=== PATIENT | female | born 1980 | race African-American/Black ===

== ENCOUNTER 2017-06-04 16:29 | Inpatient (IN) ==
[2017-06-04 18:00] LABS: Basophils % 0.5 % (0.0-0.8); Eosinophils # 0.1 10*3/uL (0.0-0.87); Eosinophils % 1.4 % (0.00-10.9); Hematocrit 29.6 VOL% (35.7-47.0); Hemoglobin 9.4 GM/DL (12.0-16.0); Immature Granulocytes % 0.5 %; Immature Granulocytes Absolute 0.02 #; Lymphocytes # 2.3 10*3/uL (1.4-4.0); Lymphocytes % 54.9 % (21.3-54.2); Mean Corpuscular HGB Conc 31.8 GM/DL (32-36); Mean Corpuscular Hemoglobin 25 PG (27-34); Mean Corpuscular Volume 78.5 FL (87-102); Mean Platelet Volume 9.6 FL (9.6-12.0); Monocytes # 0.3 10*3/uL (0.11-0.8); Monocytes % 6.7 % (1.7-12.7); Neutrophils # 1.5 10*3/uL (1.4-7.4); Platelet Count 359 T/CUMM (130-400); Red Blood Count 3.77 MC/CUMM (3.8-5.5); Red Cell Distribution Width 14.3 % (9.3-17.3); White Blood Count 4.2 T/CUMM (4-12)
[2017-06-04 18:14] LABS: Apearance,Urine Slightly Hazy (Clear); Bilirubin,Urine Negative (Negative); Blood, Urine Moderate mg/dL (Negative); Glucose,Urine (UA) Negative (Negative); Hyaline Casts,Urine 6 /LPF (0-3); Ketones,Urine Negative (Negative); Mucus,Urine Occasional /LPF (Occasional); Nitrite,Urine Negative (Negative); Protein,Urine 100 MG/DL; RBC,Urine 67 /HPF (0-4); Squamous Epithelial Cell,Urine Occasional /HPF (0-10); Urine Color Yellow (Yellow); Urine Urobilinogen < 2.0 EU/DL (0.2-1.0); WBC,Urine 7 /HPF (0-6)
[2017-06-04 18:30] LABS: Band Neutrophils 2 % (0-10); Lymphocytes 47 % (20-55); Microcytosis 1+; Platelet Estimate Normal; Segmented Neutrophils 45 % (50-85); Total Cells Counted 100
[2017-06-04] MEDS ORDERED: diphenhydrAMINE CAP 25 MG CAPSULE PO PRN (18:33)
[2017-06-04] MEDS ORDERED: ONDANSETRON 4 MG/2 ML VIAL IV PRN (18:33)
[2017-06-04] MEDS ORDERED: ACETAMINOPHEN 325 MG TABLET PO PRN (18:33)
[2017-06-04] MEDS ORDERED: MORPHINE 4 MG/1 ML VIAL IV PRN (18:33)
[2017-06-04] MEDS ORDERED: DOCUSATE SODIUM 100 MG CAPSULE PO PRN (18:33)
[2017-06-04 19:42] LABS: Potassium 5.1 MMOL/L (3.5-5.1); Sodium 137 MMOL/L (136-145)
[2017-06-04 19:46] LABS: Blood Urea Nitrogen 51 MG/DL (7-18); Glucose 88 MG/DL (74-106); Osmolality,Calculated 285.8 MOS/KG (273-304)
[2017-06-04 19:49] LABS: Alanine Aminotransferase 13 U/L (13-56); Aspartate Amino Transferase 30 U/L (0-37)
[2017-06-04 19:50] LABS: Bilirubin,Total < 0.39 MG/DL (0.2-1.0)
[2017-06-04 19:51] LABS: Total Protein 8.9 G/DL (6.4-8.3)
[2017-06-04 19:52] LABS: Alkaline Phosphatase 106 U/L (45-117)
[2017-06-04] MEDS ORDERED: SODIUM CHLORIDE 0.9% 1,000 ML IV ONE (20:30)
[2017-06-04] MEDS: HYDROXYCHLOROQUINE 200 MG TABLET PO SCH (20:52)
[2017-06-04] MEDS: ENOXAPARIN 30 MG/0.3 ML SYRINGE SUBCUT SCH (20:52)
[2017-06-04] MEDS: hydrALAZINE 25 MG TABLET PO SCH (20:52)
[2017-06-04] MEDS: CARVEDILOL 12.5 MG TABLET PO SCH (20:52)
[2017-06-04] MEDS: SODIUM CHLORIDE 0.9% 1,000 ML IV SCH (22:03)
[2017-06-05] MEDS: SODIUM CHLORIDE 0.9% 1,000 ML IV SCH ×2 (05:40→14:02)
[2017-06-05 07:13] LABS: Basophils % 0.3 % (0.0-0.8); Eosinophils % 0.9 % (0.00-10.9); Hematocrit 23.7 VOL% (35.7-47.0); Immature Granulocytes % 0.6 %; Immature Granulocytes Absolute 0.02 #; Lymphocytes # 1.8 10*3/uL (1.4-4.0); Lymphocytes % 53.4 % (21.3-54.2); Mean Corpuscular HGB Conc 32.9 GM/DL (32-36); Mean Corpuscular Hemoglobin 25 PG (27-34); Mean Platelet Volume 10.6 FL (9.6-12.0); Monocytes # 0.3 10*3/uL (0.11-0.8); Monocytes % 7.6 % (1.7-12.7); Neutrophils # 1.3 10*3/uL (1.4-7.4); Neutrophils % 37.2 % (38.7-73.9); Platelet Count 340 T/CUMM (130-400); Red Blood Count 3.12 MC/CUMM (3.8-5.5); Red Cell Distribution Width 14.3 % (9.3-17.3); White Blood Count 3.4 T/CUMM (4-12)
[2017-06-05 07:37] LABS: Alanine Aminotransferase 10 U/L (13-56); Albumin 2.2 G/DL (3.4-5.0); Alkaline Phosphatase 80 U/L (45-117); Aspartate Amino Transferase 15 U/L (0-37); Bilirubin,Total < 0.39 MG/DL (0.2-1.0); Blood Urea Nitrogen 44 MG/DL (7-18); Calcium 7.8 MG/DL (8.5-10.1); Glucose 84 MG/DL (74-106); Osmolality,Calculated 288.4 MOS/KG (273-304); Potassium 4.7 MMOL/L (3.5-5.1); Sodium 140 MMOL/L (136-145); Total Protein 6.8 G/DL (6.4-8.3)
[2017-06-05 07:51] LABS: Hemoglobin 7.8 GM/DL (12.0-16.0)
[2017-06-05 07:58] LABS: Eosinophils 1 % (0-10); Lymphocytes 49 % (20-55); Myelocytes 1 %; Segmented Neutrophils 39 % (50-85); Total Cells Counted 100
[2017-06-05 07:59] LABS: Hypochromasia 1+; Microcytosis 1+; Ovalocytes Few; Platelet Estimate Normal
[2017-06-05] MEDS: PANTOPRAZOLE 40 MG TABLET PO SCH (08:51)
[2017-06-05] MEDS: hydrALAZINE 25 MG TABLET PO SCH ×2 (08:51→21:00)
[2017-06-05] MEDS: HYDROXYCHLOROQUINE 200 MG TABLET PO SCH ×2 (08:51→21:00)
[2017-06-05] MEDS: CARVEDILOL 12.5 MG TABLET PO SCH ×2 (08:51→21:00)
[2017-06-05] MEDS: predniSONE 20 MG TABLET PO SCH (08:51)
[2017-06-05] MEDS ORDERED: VALSARTAN/HCTZ 160-12.5 MG TABLET PO SCH (12:00)
[2017-06-05 12:56] LABS: % Iron Saturation 19.5 % (18-50)
[2017-06-05] MEDS ORDERED: SODIUM CHLORIDE 0.9% 1,000 ML IV PRN (18:42)
[2017-06-05] MEDS: ENOXAPARIN 30 MG/0.3 ML SYRINGE SUBCUT SCH (21:00)
[2017-06-06] MEDS: SODIUM CHLORIDE 0.9% 1,000 ML IV SCH ×4 (01:03→22:04)
[2017-06-06 07:10] LABS: Basophils % 0.3 % (0.0-0.8); Eosinophils % 0.8 % (0.00-10.9); Hematocrit 30.1 VOL% (35.7-47.0); Immature Granulocytes % 0.3 %; Immature Granulocytes Absolute 0.01 #; Lymphocytes # 1.6 10*3/uL (1.4-4.0); Lymphocytes % 42.8 % (21.3-54.2); Mean Corpuscular HGB Conc 32.6 GM/DL (32-36); Mean Corpuscular Hemoglobin 25 PG (27-34); Mean Corpuscular Volume 77.8 FL (87-102); Mean Platelet Volume 9.8 FL (9.6-12.0); Monocytes # 0.3 10*3/uL (0.11-0.8); Monocytes % 7.6 % (1.7-12.7); Neutrophils # 1.8 10*3/uL (1.4-7.4); Neutrophils % 48.2 % (38.7-73.9); Platelet Count 277 T/CUMM (130-400); Red Cell Distribution Width 15.2 % (9.3-17.3); White Blood Count 3.7 T/CUMM (4-12)
[2017-06-06 07:19] LABS: Red Blood Count 3.87 MC/CUMM (3.8-5.5)
[2017-06-06 07:20] LABS: Hemoglobin 9.8 GM/DL (12.0-16.0)
[2017-06-06 07:40] LABS: Osmolality,Calculated 286.3 MOS/KG (273-304); Potassium 4.6 MMOL/L (3.5-5.1)
[2017-06-06 09:33] LABS: PT Patient Result 10.3 SECS
[2017-06-06] MEDS ORDERED: DIAZEPAM 5 MG TABLET PO ONE ×2 (10:07)
[2017-06-06] MEDS: CARVEDILOL 12.5 MG TABLET PO SCH ×2 (13:27→22:03)
[2017-06-06] MEDS: hydrALAZINE 25 MG TABLET PO SCH ×2 (13:27→22:03)
[2017-06-06] MEDS: PANTOPRAZOLE 40 MG TABLET PO SCH (13:28)
[2017-06-06] MEDS: HYDROXYCHLOROQUINE 200 MG TABLET PO SCH ×2 (13:28→22:03)
[2017-06-06] MEDS: predniSONE 20 MG TABLET PO SCH (13:28)
[2017-06-06] MEDS: ENOXAPARIN 30 MG/0.3 ML SYRINGE SUBCUT SCH (22:03)
[2017-06-07] MEDS: SODIUM CHLORIDE 0.9% 1,000 ML IV SCH (06:19)
[2017-06-07 06:57] LABS: Eosinophils % 1.2 % (0.00-10.9); Hematocrit 31.3 VOL% (35.7-47.0); Hemoglobin 10.3 GM/DL (12.0-16.0); Immature Granulocytes % 0.3 %; Immature Granulocytes Absolute 0.01 #; Lymphocytes # 1.4 10*3/uL (1.4-4.0); Lymphocytes % 40.2 % (21.3-54.2); Mean Corpuscular HGB Conc 32.9 GM/DL (32-36); Mean Corpuscular Hemoglobin 25 PG (27-34); Mean Corpuscular Volume 77.3 FL (87-102); Mean Platelet Volume 9.7 FL (9.6-12.0); Monocytes # 0.2 10*3/uL (0.11-0.8); Neutrophils # 1.8 10*3/uL (1.4-7.4); Neutrophils % 51.3 % (38.7-73.9); Platelet Count 266 T/CUMM (130-400); Red Blood Count 4.05 MC/CUMM (3.8-5.5); Red Cell Distribution Width 15.3 % (9.3-17.3); White Blood Count 3.4 T/CUMM (4-12)
[2017-06-07 07:23] LABS: Calcium 7.6 MG/DL (8.5-10.1); Osmolality,Calculated 285.1 MOS/KG (273-304); Potassium 4.2 MMOL/L (3.5-5.1)
[2017-06-07] MEDS: predniSONE 20 MG TABLET PO SCH (09:39)
[2017-06-07] MEDS: hydrALAZINE 25 MG TABLET PO SCH ×2 (09:40→21:59)
[2017-06-07] MEDS: HYDROXYCHLOROQUINE 200 MG TABLET PO SCH ×2 (09:41→21:59)
[2017-06-07] MEDS: PANTOPRAZOLE 40 MG TABLET PO SCH (09:41)
[2017-06-07] MEDS: CARVEDILOL 12.5 MG TABLET PO SCH ×2 (09:41→21:59)
[2017-06-07] MEDS ORDERED: methylPREDNISolone SOD SUC INJ 1,000 MG in SODIUM CHLORIDE 0.9% 100 ML IV SCH (17:30)
[2017-06-07] MEDS ORDERED: MYCOPHENOLATE MOFETIL 250 MG CAPSULE PO SCH (21:00)
[2017-06-07] MEDS: methylPREDNISolone SOD SUC INJ 1,000 MG in SODIUM CHLORIDE 0.9% 100 ML IV SCH (21:59)
[2017-06-07] MEDS: MYCOPHENOLATE MOFETIL 250 MG CAPSULE PO SCH (21:59)
[2017-06-07] MEDS: ENOXAPARIN 30 MG/0.3 ML SYRINGE SUBCUT SCH (22:00)
[2017-06-08 07:10] LABS: Calcium 8.7 MG/DL (8.5-10.1); Osmolality,Calculated 282.7 MOS/KG (273-304); Potassium 4.7 MMOL/L (3.5-5.1)
[2017-06-08] MEDS: MYCOPHENOLATE MOFETIL 250 MG CAPSULE PO SCH ×2 (08:38→21:15)
[2017-06-08] MEDS: PANTOPRAZOLE 40 MG TABLET PO SCH (08:39)
[2017-06-08] MEDS: hydrALAZINE 25 MG TABLET PO SCH ×2 (08:39→21:15)
[2017-06-08] MEDS: CARVEDILOL 12.5 MG TABLET PO SCH ×2 (08:39→21:15)
[2017-06-08] MEDS: HYDROXYCHLOROQUINE 200 MG TABLET PO SCH (08:39)
[2017-06-08] MEDS ORDERED: GLUCAGON 1 MG VIAL IM PRN (11:18)
[2017-06-08] MEDS ORDERED: DEXTROSE 50% 25 GM/50 ML VIAL IV PRN (11:18)
[2017-06-08] MEDS: INSULIN REGULAR 100 UNIT/ML SUBCUT SCH (16:48)
[2017-06-08] MEDS: methylPREDNISolone SOD SUC INJ 1,000 MG in SODIUM CHLORIDE 0.9% 100 ML IV SCH (21:14)
[2017-06-08] MEDS: ENOXAPARIN 30 MG/0.3 ML SYRINGE SUBCUT SCH (21:15)
[2017-06-09 07:02] LABS: Hematocrit 31.3 VOL% (35.7-47.0); Hemoglobin 10.2 GM/DL (12.0-16.0); Immature Granulocytes % 0.4 %; Immature Granulocytes Absolute 0.04 #; Lymphocytes # 1.1 10*3/uL (1.4-4.0); Lymphocytes % 10.2 % (21.3-54.2); Mean Corpuscular HGB Conc 32.6 GM/DL (32-36); Mean Corpuscular Hemoglobin 26 PG (27-34); Mean Corpuscular Volume 78.3 FL (87-102); Mean Platelet Volume 10.7 FL (9.6-12.0); Monocytes # 0.1 10*3/uL (0.11-0.8); Monocytes % 0.6 % (1.7-12.7); Neutrophils # 9.1 10*3/uL (1.4-7.4); Neutrophils % 88.8 % (38.7-73.9); Platelet Count 269 T/CUMM (130-400); Red Cell Distribution Width 15.6 % (9.3-17.3); White Blood Count 10.3 T/CUMM (4-12)
[2017-06-09 07:10] LABS: Calcium 8.4 MG/DL (8.5-10.1); Osmolality,Calculated 287.5 MOS/KG (273-304); Potassium 5.1 MMOL/L (3.5-5.1)
[2017-06-09] MEDS: INSULIN REGULAR 100 UNIT/ML SUBCUT SCH ×2 (07:13→17:23)
[2017-06-09] MEDS: MYCOPHENOLATE MOFETIL 250 MG CAPSULE PO SCH ×2 (08:08→20:30)
[2017-06-09] MEDS: CARVEDILOL 12.5 MG TABLET PO SCH ×2 (08:08→20:30)
[2017-06-09] MEDS: PANTOPRAZOLE 40 MG TABLET PO SCH (08:08)
[2017-06-09] MEDS: hydrALAZINE 25 MG TABLET PO SCH ×2 (08:08→20:30)
[2017-06-09] MEDS: methylPREDNISolone SOD SUC INJ 1,000 MG in SODIUM CHLORIDE 0.9% 100 ML IV SCH (20:29)
[2017-06-09] MEDS: ENOXAPARIN 30 MG/0.3 ML SYRINGE SUBCUT SCH (20:30)
[2017-06-10] MEDS: INSULIN REGULAR 100 UNIT/ML SUBCUT SCH ×2 (08:01→17:39)
[2017-06-10] MEDS: CARVEDILOL 12.5 MG TABLET PO SCH ×2 (09:12→20:07)
[2017-06-10] MEDS: hydrALAZINE 25 MG TABLET PO SCH ×2 (09:12→20:07)
[2017-06-10] MEDS: PANTOPRAZOLE 40 MG TABLET PO SCH (09:12)
[2017-06-10] MEDS: MYCOPHENOLATE MOFETIL 250 MG CAPSULE PO SCH ×2 (09:12→20:06)
[2017-06-10 12:48] LABS: Calcium 8.4 MG/DL (8.5-10.1)
[2017-06-10 12:49] LABS: Osmolality,Calculated 294.7 MOS/KG (273-304); Potassium 4.2 MMOL/L (3.5-5.1)
[2017-06-10] MEDS: ENOXAPARIN 30 MG/0.3 ML SYRINGE SUBCUT SCH (20:07)
[2017-06-11 07:23] LABS: Basophils % 0.1 % (0.0-0.8); Hematocrit 33.8 VOL% (35.7-47.0); Hemoglobin 10.9 GM/DL (12.0-16.0); Immature Granulocytes % 0.6 %; Immature Granulocytes Absolute 0.06 #; Lymphocytes # 1.4 10*3/uL (1.4-4.0); Lymphocytes % 14.8 % (21.3-54.2); Mean Corpuscular HGB Conc 32.2 GM/DL (32-36); Mean Corpuscular Hemoglobin 25 PG (27-34); Mean Corpuscular Volume 78.6 FL (87-102); Mean Platelet Volume 10.9 FL (9.6-12.0); Monocytes # 0.5 10*3/uL (0.11-0.8); Monocytes % 5.5 % (1.7-12.7); Neutrophils # 7.4 10*3/uL (1.4-7.4); Platelet Count 277 T/CUMM (130-400); Red Cell Distribution Width 15.9 % (9.3-17.3); White Blood Count 9.4 T/CUMM (4-12)
[2017-06-11] MEDS: INSULIN REGULAR 100 UNIT/ML SUBCUT SCH ×2 (07:44→16:51)
[2017-06-11 07:49] LABS: Calcium 8.2 MG/DL (8.5-10.1); Osmolality,Calculated 294.7 MOS/KG (273-304); Potassium 4.4 MMOL/L (3.5-5.1)
[2017-06-11] MEDS: PANTOPRAZOLE 40 MG TABLET PO SCH (09:17)
[2017-06-11] MEDS: CARVEDILOL 12.5 MG TABLET PO SCH ×2 (09:17→20:46)
[2017-06-11] MEDS: MYCOPHENOLATE MOFETIL 250 MG CAPSULE PO SCH ×2 (09:17→20:46)
[2017-06-11] MEDS: hydrALAZINE 25 MG TABLET PO SCH ×2 (09:17→20:46)
[2017-06-11] MEDS: POLYETHYLENE GLYCOL POWDER 17 GM PACK PO SCH (10:27)
[2017-06-11] MEDS: ENOXAPARIN 30 MG/0.3 ML SYRINGE SUBCUT SCH (20:46)
[2017-06-12 06:55] LABS: Eosinophils % 0.3 % (0.00-10.9); Hematocrit 33.7 VOL% (35.7-47.0); Hemoglobin 10.9 GM/DL (12.0-16.0); Immature Granulocytes % 0.6 %; Immature Granulocytes Absolute 0.04 #; Lymphocytes # 2.1 10*3/uL (1.4-4.0); Lymphocytes % 34.7 % (21.3-54.2); Mean Corpuscular HGB Conc 32.3 GM/DL (32-36); Mean Corpuscular Hemoglobin 26 PG (27-34); Mean Corpuscular Volume 78.7 FL (87-102); Mean Platelet Volume 11.7 FL (9.6-12.0); Monocytes # 0.5 10*3/uL (0.11-0.8); Monocytes % 7.8 % (1.7-12.7); Neutrophils # 3.5 10*3/uL (1.4-7.4); Neutrophils % 56.6 % (38.7-73.9); Platelet Count 268 T/CUMM (130-400); Red Blood Count 4.28 MC/CUMM (3.8-5.5); Red Cell Distribution Width 15.9 % (9.3-17.3); White Blood Count 6.2 T/CUMM (4-12)
[2017-06-12 07:33] LABS: Calcium 7.6 MG/DL (8.5-10.1); Osmolality,Calculated 297.4 MOS/KG (273-304); Potassium 4.5 MMOL/L (3.5-5.1)
[2017-06-12] MEDS: INSULIN REGULAR 100 UNIT/ML SUBCUT SCH (07:47)
[2017-06-12] MEDS: PANTOPRAZOLE 40 MG TABLET PO SCH (08:53)
[2017-06-12] MEDS: POLYETHYLENE GLYCOL POWDER 17 GM PACK PO SCH (08:53)
[2017-06-12] MEDS: MYCOPHENOLATE MOFETIL 250 MG CAPSULE PO SCH (08:53)
[2017-06-12] MEDS: hydrALAZINE 25 MG TABLET PO SCH (08:55)
[2017-06-12] MEDS: CARVEDILOL 12.5 MG TABLET PO SCH (08:56)
[2017-06-12] MEDS ORDERED: predniSONE 20 MG TABLET PO SCH (09:00)
[2017-06-12 11:48] VITALS: BP 127/74
== END 2017-06-12 15:07 | disposition home or self-care (01) | DRG 460 ==
LOC: N.EDINP 16:29 → N.ED 16:29 → N.EDINP 20:10 → N.5E 20:24 → SUATTDRO 06-05 10:43
PROVIDERS: ADMIT Internal Medicine Cardiovascular Disease; ATTEND Internal Medicine

== ENCOUNTER 2017-07-07 18:40 | Inpatient (IN) ==
[2017-07-07] MEDS ORDERED: ALBUTEROL/IPRATROPIUM 3 ML NEB RESP TX STA (20:27)
[2017-07-07] MEDS ORDERED: hydrALAZINE 20 MG/1 ML VIAL IV STA (20:27)
[2017-07-07] MEDS ORDERED: FUROSEMIDE 100 MG/10 ML VIAL IV STA (20:27)
[2017-07-07] MEDS ORDERED: NITROGLYCERIN 2% OINT 1 INCH/GM PACK TOP STA (20:27)
[2017-07-07 21:08] LABS: Basophils % 0.1 % (0.0-0.8); Hematocrit 27.4 VOL% (35.7-47.0); Hemoglobin 8.9 GM/DL (12.0-16.0); Immature Granulocytes % 0.5 %; Immature Granulocytes Absolute 0.05 #; Lymphocytes # 0.8 10*3/uL (1.4-4.0); Lymphocytes % 8.8 % (21.3-54.2); Mean Corpuscular HGB Conc 32.5 GM/DL (32-36); Mean Corpuscular Hemoglobin 26 PG (27-34); Mean Platelet Volume 10.1 FL (9.6-12.0); Monocytes # 0.3 10*3/uL (0.11-0.8); Monocytes % 3.2 % (1.7-12.7); Neutrophils % 87.4 % (38.7-73.9); Platelet Count 245 T/CUMM (130-400); Red Blood Count 3.47 MC/CUMM (3.8-5.5); Red Cell Distribution Width 16.6 % (9.3-17.3); White Blood Count 9.2 T/CUMM (4-12)
[2017-07-07 21:13] LABS: Apearance,Urine CLEAR (Clear); Bilirubin,Urine Negative (Negative); Blood, Urine Moderate mg/dL (Negative); Glucose,Urine (UA) Negative (Negative); Hyaline Casts,Urine 1 /LPF (0-3); Ketones,Urine Negative (Negative); Nitrite,Urine Negative (Negative); Protein,Urine 100 MG/DL; RBC,Urine 1 /HPF (0-4); Squamous Epithelial Cell,Urine Occasional /HPF (0-10); Urine Color Straw (Yellow); Urine Specific Gravity 1.005 (1.001-1.035); Urine Urobilinogen < 2.0 EU/DL (0.2-1.0); WBC,Urine 2 /HPF (0-6)
[2017-07-07 21:22] LABS: INR 0.9; PT Patient Result 9.4 SECS
[2017-07-07 21:34] LABS: Alanine Aminotransferase 19 U/L (13-56); Alkaline Phosphatase 53 U/L (45-117); Aspartate Amino Transferase 16 U/L (0-37); Bilirubin,Total < 0.39 MG/DL (0.2-1.0); Blood Urea Nitrogen 56 MG/DL (7-18); Calcium 8.5 MG/DL (8.5-10.1); Glucose 107 MG/DL (74-106); Osmolality,Calculated 294.4 MOS/KG (273-304); Potassium 3.3 MMOL/L (3.5-5.1); Sodium 140 MMOL/L (136-145); Total Protein 6.6 G/DL (6.4-8.3); Troponin I Only 0.032 NG/ML (0.00-0.045)
[2017-07-07] MEDS ORDERED: ONDANSETRON 4 MG/2 ML VIAL IV PRN (21:40)
[2017-07-07] MEDS ORDERED: MAGNESIUM SULF RIDER 2 GM in PREMIX 1 EACH IV STA (21:42)
[2017-07-07] MEDS ORDERED: hydrALAZINE 20 MG/1 ML VIAL IV PRN (21:47)
[2017-07-07] MEDS ORDERED: ALBUTEROL/IPRATROPIUM 3 ML NEB RESP TX PRN (21:53)
[2017-07-08] MEDS: hydrALAZINE 25 MG TABLET PO SCH ×2 (00:19→09:42)
[2017-07-08] MEDS: ACETAMINOPHEN 325 MG TABLET PO PRN ×4 (00:19→23:37)
[2017-07-08] MEDS: ENOXAPARIN 30 MG/0.3 ML SYRINGE SUBCUT SCH ×2 (00:19→21:58)
[2017-07-08] MEDS: CARVEDILOL 12.5 MG TABLET PO SCH ×3 (00:19→21:58)
[2017-07-08 05:27] LABS: Hematocrit 24.7 VOL% (35.7-47.0); Hemoglobin 8.4 GM/DL (12.0-16.0); Immature Granulocytes % 0.2 %; Immature Granulocytes Absolute 0.01 #; Lymphocytes # 0.6 10*3/uL (1.4-4.0); Lymphocytes % 9.2 % (21.3-54.2); Mean Corpuscular Hemoglobin 26 PG (27-34); Mean Corpuscular Volume 76.5 FL (87-102); Mean Platelet Volume 9.8 FL (9.6-12.0); Monocytes # 0.1 10*3/uL (0.11-0.8); Monocytes % 2.2 % (1.7-12.7); Neutrophils # 5.3 10*3/uL (1.4-7.4); Neutrophils % 88.4 % (38.7-73.9); Platelet Count 214 T/CUMM (130-400); Red Blood Count 3.23 MC/CUMM (3.8-5.5); Red Cell Distribution Width 16.5 % (9.3-17.3)
[2017-07-08 05:58] LABS: Calcium 8.1 MG/DL (8.5-10.1); Osmolality,Calculated 295.5 MOS/KG (273-304); Potassium 3.6 MMOL/L (3.5-5.1)
[2017-07-08] MEDS ORDERED: LOSARTAN 25 MG TABLET PO SCH (09:00)
[2017-07-08] MEDS ORDERED: MYCOPHENOLATE MOFETIL 1000 MG PO SCH (09:00)
[2017-07-08] MEDS: FUROSEMIDE 40 MG/4 ML VIAL IV SCH ×2 (09:41→16:28)
[2017-07-08] MEDS: PANTOPRAZOLE 40 MG TABLET PO SCH (09:42)
[2017-07-08] MEDS: ISOSORBIDE DINITRATE 10 MG TABLET PO SCH ×2 (09:42→21:58)
[2017-07-08] MEDS: predniSONE 50 MG TABLET PO SCH (09:42)
[2017-07-08 09:57] LABS: Troponin I Only 0.049 NG/ML (0.00-0.045)
[2017-07-08 11:40] LABS: Hematocrit 23.8 VOL% (35.7-47.0); Hemoglobin 7.9 GM/DL (12.0-16.0); Immature Granulocytes % 0.3 %; Immature Granulocytes Absolute 0.02 #; Lymphocytes # 0.7 10*3/uL (1.4-4.0); Lymphocytes % 11.3 % (21.3-54.2); Mean Corpuscular HGB Conc 33.2 GM/DL (32-36); Mean Corpuscular Hemoglobin 26 PG (27-34); Mean Corpuscular Volume 78.8 FL (87-102); Monocytes # 0.3 10*3/uL (0.11-0.8); Monocytes % 5.3 % (1.7-12.7); Neutrophils # 5.1 10*3/uL (1.4-7.4); Neutrophils % 83.1 % (38.7-73.9); Platelet Count 229 T/CUMM (130-400); Red Blood Count 3.02 MC/CUMM (3.8-5.5); Red Cell Distribution Width 16.7 % (9.3-17.3); White Blood Count 6.1 T/CUMM (4-12)
[2017-07-08 12:23] LABS: Folate > 24.0 NG/ML (5.4-24.0); Vitamin B12 539 PG/ML (211-911)
[2017-07-08 12:29] LABS: Troponin I Only 0.038 NG/ML (0.00-0.045)
[2017-07-08 13:21] LABS: Sedimentation Rate-Westergren 73 MM/HR (0-20)
[2017-07-09 00:15] LABS: Hematocrit 25.3 VOL% (35.7-47.0); Hemoglobin 8.3 GM/DL (12.0-16.0); Immature Granulocytes % 0.5 %; Immature Granulocytes Absolute 0.04 #; Lymphocytes # 1.3 10*3/uL (1.4-4.0); Lymphocytes % 16.6 % (21.3-54.2); Mean Corpuscular HGB Conc 32.8 GM/DL (32-36); Mean Corpuscular Hemoglobin 26 PG (27-34); Mean Corpuscular Volume 78.3 FL (87-102); Mean Platelet Volume 8.9 FL (9.6-12.0); Monocytes # 0.5 10*3/uL (0.11-0.8); Monocytes % 5.8 % (1.7-12.7); Neutrophils # 6.1 10*3/uL (1.4-7.4); Neutrophils % 77.1 % (38.7-73.9); Platelet Count 211 T/CUMM (130-400); Red Blood Count 3.23 MC/CUMM (3.8-5.5); Red Cell Distribution Width 16.6 % (9.3-17.3); White Blood Count 7.9 T/CUMM (4-12)
[2017-07-09 00:42] LABS: Calcium 8.4 MG/DL (8.5-10.1); Osmolality,Calculated 293.5 MOS/KG (273-304); Potassium 3.6 MMOL/L (3.5-5.1)
[2017-07-09] MEDS: PANTOPRAZOLE 40 MG TABLET PO SCH (09:58)
[2017-07-09] MEDS: ACETAMINOPHEN 325 MG TABLET PO PRN ×2 (09:58→23:55)
[2017-07-09] MEDS: FUROSEMIDE 40 MG/4 ML VIAL IV SCH (09:58)
[2017-07-09] MEDS: predniSONE 50 MG TABLET PO SCH (09:59)
[2017-07-09] MEDS: CARVEDILOL 12.5 MG TABLET PO SCH ×2 (09:59→22:15)
[2017-07-09] MEDS: ISOSORBIDE DINITRATE 10 MG TABLET PO SCH ×2 (09:59→22:16)
[2017-07-09 12:53] LABS: Hemoglobin A1 (Alkaline) 97.1 % (96.5-98.5); Hemoglobin A2 (Alkaline) 2.9 % (1.5-3.5)
[2017-07-09] MEDS: FUROSEMIDE 40 MG TABLET PO SCH (16:02)
[2017-07-09] MEDS: cloNIDine 0.1 MG TABLET PO SCH ×2 (16:02→22:15)
[2017-07-09] MEDS: ENOXAPARIN 30 MG/0.3 ML SYRINGE SUBCUT SCH (22:16)
[2017-07-10 06:00] LABS: Osmolality,Calculated 291.4 MOS/KG (273-304); Potassium 3.5 MMOL/L (3.5-5.1)
[2017-07-10] MEDS ORDERED: hydrALAZINE 25 MG TABLET ONE (09:07)
[2017-07-10] MEDS: cloNIDine 0.1 MG TABLET PO SCH (09:21)
[2017-07-10] MEDS: FUROSEMIDE 40 MG TABLET PO SCH (09:21)
[2017-07-10] MEDS: CARVEDILOL 12.5 MG TABLET PO SCH (09:22)
[2017-07-10] MEDS: ISOSORBIDE DINITRATE 10 MG TABLET PO SCH (09:22)
[2017-07-10] MEDS: PANTOPRAZOLE 40 MG TABLET PO SCH (09:22)
[2017-07-10] MEDS: predniSONE 50 MG TABLET PO SCH (09:22)
[2017-07-10 11:57] VITALS: BP 132/70
== END 2017-07-10 13:44 | disposition home or self-care (01) | DRG 346 ==
LOC: N.ED 18:40 → N.EDINP 21:40 → N.TELEN 22:34

== ENCOUNTER 2019-04-22 11:34 | Inpatient (IN) ==
[2019-04-22 17:15] LABS: Basophils % 0.5 % (0.0-0.8); Eosinophils % 1.1 % (0.00-10.9); Hematocrit 29.1 VOL% (35.7-47.0); Hemoglobin 9.1 GM/DL (12.0-16.0); Immature Granulocytes % 0.3 %; Immature Granulocytes Absolute 0.01 #; Lymphocytes # 1.1 10*3/uL (1.4-4.0); Lymphocytes % 30.2 % (21.3-54.2); Mean Corpuscular HGB Conc 31.3 GM/DL (32-36); Mean Corpuscular Volume 80.6 FL (87-102); Mean Platelet Volume 11.4 FL (9.6-12.0); Monocytes % 7.9 % (1.7-12.7); Platelet Count 206 T/CUMM (130-400); Red Blood Count 3.61 MC/CUMM (3.8-5.5); White Blood Count 3.7 T/CUMM (4-12)
[2019-04-22 17:40] LABS: Calcium 8.9 MG/DL (8.5-10.1); Osmolality,Calculated 281.5 MOS/KG (273-304); Thyroid Stimulating Hormone 1.03 uIU/ml (0.358-3.74)
[2019-04-22] MEDS ORDERED: SODIUM POLYSTYRENE SULFATE 15 GM/60 ML BOTTLE PO ONE (17:50)
[2019-04-22] MEDS: MYCOPHENOLATE MOFETIL 250 MG CAPSULE PO SCH (20:27)
[2019-04-22] MEDS: HYDROXYCHLOROQUINE 200 MG TABLET PO SCH (20:27)
[2019-04-22] MEDS: hydrALAZINE 25 MG TABLET PO SCH (20:28)
[2019-04-22] MEDS ORDERED: SODIUM CHLORIDE 0.9% 1,000 ML IV SCH (20:30)
[2019-04-22] MEDS: carvediloL 12.5 MG TABLET PO SCH (20:42)
[2019-04-23 05:21] LABS: Basophils % 0.3 % (0.0-0.8); Eosinophils % 0.3 % (0.00-10.9); Hematocrit 26.1 VOL% (35.7-47.0); Hemoglobin 8.3 GM/DL (12.0-16.0); Immature Granulocytes % 0.3 %; Immature Granulocytes Absolute 0.01 #; Lymphocytes # 1.6 10*3/uL (1.4-4.0); Lymphocytes % 46.3 % (21.3-54.2); Mean Corpuscular HGB Conc 31.8 GM/DL (32-36); Mean Corpuscular Volume 79.3 FL (87-102); Mean Platelet Volume 11.7 FL (9.6-12.0); Monocytes % 10.7 % (1.7-12.7); Neutrophils % 42.1 % (38.7-73.9); Platelet Count 191 T/CUMM (130-400); Red Blood Count 3.29 MC/CUMM (3.8-5.5); Red Cell Distribution Width 13.9 % (9.3-17.3); White Blood Count 3.5 T/CUMM (4-12)
[2019-04-23 06:04] LABS: Calcium 8.8 MG/DL (8.5-10.1); Osmolality,Calculated 284.2 MOS/KG (273-304)
[2019-04-23] MEDS: MYCOPHENOLATE MOFETIL 250 MG CAPSULE PO SCH ×2 (08:02→21:34)
[2019-04-23] MEDS: HYDROXYCHLOROQUINE 200 MG TABLET PO SCH ×2 (08:02→21:34)
[2019-04-23] MEDS: carvediloL 12.5 MG TABLET PO SCH ×2 (08:02→21:35)
[2019-04-23] MEDS: hydrALAZINE 25 MG TABLET PO SCH ×2 (08:02→21:35)
[2019-04-23] MEDS: methylPREDNISolone SOD SUC 125 MG/2 ML VIAL IV SCH ×2 (17:46→23:43)
[2019-04-23 18:36] LABS: Apearance,Urine Slightly Hazy (Clear); Bilirubin,Urine Negative (Negative); Blood, Urine Moderate mg/dL (Negative); Glucose,Urine (UA) Negative (Negative); Ketones,Urine Negative (Negative); Mucus,Urine Occasional /LPF (Occasional); Nitrite,Urine Negative (Negative); Protein,Urine 100 MG/DL; RBC,Urine 17 /HPF (0-4); Squamous Epithelial Cell,Urine Occasional /HPF (0-10); Urine Color Yellow (Yellow); Urine Urobilinogen < 2.0 EU/DL (0.2-1.0); WBC,Urine 43 /HPF (0-6)
[2019-04-23 19:09] LABS: Microalbum/Creat Ratio Random 487.2 RATIO (0-30)
[2019-04-24] MEDS: methylPREDNISolone SOD SUC 125 MG/2 ML VIAL IV SCH ×3 (05:44→21:39)
[2019-04-24 07:06] LABS: Total Protein (Chem) 8.9 G/DL (6.4-8.3)
[2019-04-24 08:39] LABS: Albumin (SPE) 4.5 G/DL (3.2-5.3); Albumin (SPE) Rel % 50.8 %; Alpha 1 (SPE) 0.1 G/DL (0.1-0.4); Alpha 1 (SPE) Rel % 1.6 %; Alpha 2 (SPE) 0.6 G/DL (0.4-1.0); Alpha 2 (SPE) Rel % 7.3 %; Beta (SPE) 0.8 G/DL (0.5-1.1); Beta (SPE) Rel % 8.9 %; Gamma (SPE) 2.8 G/DL (0.7-1.7); Gamma (SPE) Rel % 31.4 %
[2019-04-24] MEDS ORDERED: DIAZEPAM 5 MG TABLET PO ONE (13:41)
[2019-04-24 13:46] LABS: PT Patient Result 10.7 SECS (9.6-12.2)
[2019-04-24] MEDS: carvediloL 12.5 MG TABLET PO SCH ×2 (15:39→21:39)
[2019-04-24] MEDS: MYCOPHENOLATE MOFETIL 250 MG CAPSULE PO SCH ×2 (15:39→21:39)
[2019-04-24] MEDS: hydrALAZINE 25 MG TABLET PO SCH ×2 (15:40→21:39)
[2019-04-24] MEDS: HYDROXYCHLOROQUINE 200 MG TABLET PO SCH ×2 (15:40→21:39)
[2019-04-25] MEDS: methylPREDNISolone SOD SUC 125 MG/2 ML VIAL IV SCH ×4 (04:47→20:37)
[2019-04-25 06:08] LABS: Hematocrit 27.2 VOL% (35.7-47.0); Hemoglobin 8.6 GM/DL (12.0-16.0); Immature Granulocytes % 0.4 %; Immature Granulocytes Absolute 0.04 #; Lymphocytes % 11.1 % (21.3-54.2); Mean Corpuscular HGB Conc 31.6 GM/DL (32-36); Mean Corpuscular Volume 78.6 FL (87-102); Mean Platelet Volume 11.6 FL (9.6-12.0); Neutrophils % 87.5 % (38.7-73.9); Platelet Count 212 T/CUMM (130-400); Red Blood Count 3.46 MC/CUMM (3.8-5.5); Red Cell Distribution Width 13.6 % (9.3-17.3); White Blood Count 9.1 T/CUMM (4-12)
[2019-04-25 06:52] LABS: Calcium 8.5 MG/DL (8.5-10.1); Osmolality,Calculated 292.2 MOS/KG (273-304)
[2019-04-25] MEDS ORDERED: ACETAMINOPHEN 325 MG TABLET PO PRN (08:34)
[2019-04-25] MEDS: MYCOPHENOLATE MOFETIL 250 MG CAPSULE PO SCH ×2 (08:42→20:38)
[2019-04-25] MEDS: hydrALAZINE 25 MG TABLET PO SCH ×2 (08:42→20:38)
[2019-04-25] MEDS: HYDROXYCHLOROQUINE 200 MG TABLET PO SCH ×2 (08:43→20:38)
[2019-04-25] MEDS: carvediloL 12.5 MG TABLET PO SCH ×2 (08:43→20:38)
[2019-04-25] MEDS: SODIUM BICARBONATE 650 MG TABLET PO SCH (20:49)
[2019-04-26] MEDS: methylPREDNISolone SOD SUC 125 MG/2 ML VIAL IV SCH ×4 (03:01→21:07)
[2019-04-26 05:48] LABS: Calcium 8.4 MG/DL (8.5-10.1); Osmolality,Calculated 300.1 MOS/KG (273-304)
[2019-04-26] MEDS: MYCOPHENOLATE MOFETIL 250 MG CAPSULE PO SCH ×2 (08:26→21:07)
[2019-04-26] MEDS: HYDROXYCHLOROQUINE 200 MG TABLET PO SCH ×2 (08:26→21:08)
[2019-04-26] MEDS: SODIUM BICARBONATE 650 MG TABLET PO SCH ×3 (08:26→21:07)
[2019-04-26] MEDS: hydrALAZINE 25 MG TABLET PO SCH ×2 (08:26→21:08)
[2019-04-26] MEDS: carvediloL 12.5 MG TABLET PO SCH ×2 (08:26→21:08)
[2019-04-27] MEDS: methylPREDNISolone SOD SUC 125 MG/2 ML VIAL IV SCH ×4 (03:28→21:01)
[2019-04-27 05:18] LABS: Calcium 8.3 MG/DL (8.5-10.1); Osmolality,Calculated 296.5 MOS/KG (273-304)
[2019-04-27] MEDS: carvediloL 12.5 MG TABLET PO SCH ×2 (09:29→21:01)
[2019-04-27] MEDS: SODIUM BICARBONATE 650 MG TABLET PO SCH ×3 (09:29→21:00)
[2019-04-27] MEDS: hydrALAZINE 25 MG TABLET PO SCH ×2 (09:29→21:01)
[2019-04-27] MEDS: MYCOPHENOLATE MOFETIL 250 MG CAPSULE PO SCH ×2 (09:29→21:00)
[2019-04-27] MEDS: HYDROXYCHLOROQUINE 200 MG TABLET PO SCH ×2 (09:30→21:01)
[2019-04-28] MEDS: methylPREDNISolone SOD SUC 125 MG/2 ML VIAL IV SCH ×3 (03:42→14:21)
[2019-04-28 06:15] LABS: Calcium 8.2 MG/DL (8.5-10.1); Osmolality,Calculated 308.1 MOS/KG (273-304)
[2019-04-28] MEDS: MYCOPHENOLATE MOFETIL 250 MG CAPSULE PO SCH ×2 (09:26→21:12)
[2019-04-28] MEDS: SODIUM BICARBONATE 650 MG TABLET PO SCH ×3 (09:26→21:12)
[2019-04-28] MEDS: carvediloL 12.5 MG TABLET PO SCH ×2 (09:26→21:12)
[2019-04-28] MEDS: hydrALAZINE 25 MG TABLET PO SCH ×2 (09:26→21:12)
[2019-04-28] MEDS: HYDROXYCHLOROQUINE 200 MG TABLET PO SCH ×2 (09:27→21:12)
[2019-04-28 13:55] LABS: Myeloperoxidase Antibody 0.8 U
[2019-04-29 05:08] LABS: Hemoglobin 8.1 GM/DL (12.0-16.0); Immature Granulocytes % 0.6 %; Immature Granulocytes Absolute 0.05 #; Lymphocytes # 0.7 10*3/uL (1.4-4.0); Lymphocytes % 7.8 % (21.3-54.2); Mean Corpuscular HGB Conc 33.8 GM/DL (32-36); Mean Corpuscular Volume 76.4 FL (87-102); Mean Platelet Volume 12.3 FL (9.6-12.0); Neutrophils % 89.6 % (38.7-73.9); Platelet Count 202 T/CUMM (130-400); Red Blood Count 3.14 MC/CUMM (3.8-5.5); Red Cell Distribution Width 13.4 % (9.3-17.3); White Blood Count 8.7 T/CUMM (4-12)
[2019-04-29 05:36] LABS: Osmolality,Calculated 310.2 MOS/KG (273-304)
[2019-04-29] MEDS ORDERED: methylPREDNISolone SOD SUC 40 MG/1 ML VIAL IV SCH (09:00)
[2019-04-29] MEDS: MYCOPHENOLATE MOFETIL 250 MG CAPSULE PO SCH (09:26)
[2019-04-29] MEDS: SODIUM BICARBONATE 650 MG TABLET PO SCH ×2 (09:26→16:32)
[2019-04-29] MEDS: HYDROXYCHLOROQUINE 200 MG TABLET PO SCH (09:27)
[2019-04-29] MEDS: hydrALAZINE 25 MG TABLET PO SCH (09:27)
[2019-04-29] MEDS: carvediloL 12.5 MG TABLET PO SCH (09:27)
[2019-04-29 12:14] VITALS: BP 123/71
[2019-05-04 15:40] LABS: c-ANCA Negative (Negative); p-ANCA Indeterminate (Negative)
== END 2019-04-29 17:36 | disposition home or self-care (01) | DRG 683 ==
LOC: SUPCPDRO 15:44 → N.5E 15:44 → SUATTDRO 15:44
PROVIDERS: ADMIT Internal Medicine; ATTEND Family Medicine

== ENCOUNTER 2019-05-17 11:42 | Inpatient (IN) ==
[2019-05-17] MEDS ORDERED: HYDROmorphone 2 MG/1 ML VIAL IV STA (12:10)
[2019-05-17] MEDS ORDERED: ONDANSETRON 4 MG/2 ML VIAL IV STA (12:10)
[2019-05-17] MEDS ORDERED: SODIUM CHLORIDE 0.9% 500 ML IV STA (12:10)
[2019-05-17 12:35] LABS: Eosinophils % 0.5 % (0.00-10.9); Immature Granulocytes Absolute 0.02 #; Lymphocytes # 0.5 10*3/uL (1.4-4.0); Mean Corpuscular HGB Conc 31.8 GM/DL (32-36); Mean Corpuscular Volume 77.7 FL (87-102); Mean Platelet Volume 11.4 FL (9.6-12.0); Monocytes % 9.7 % (1.7-12.7); Neutrophils % 62.8 % (38.7-73.9); Platelet Count 188 T/CUMM (130-400); Red Blood Count 2.83 MC/CUMM (3.8-5.5); Red Cell Distribution Width 13.8 % (9.3-17.3)
[2019-05-17 12:52] LABS: Anisocytosis 1+; Band Neutrophils 4 % (0-10); Eosinophils 3 % (0-10); Lymphocytes 21 % (20-55); Platelet Estimate Normal; Segmented Neutrophils 64 % (50-85); Total Cells Counted 100
[2019-05-17 12:53] LABS: Alanine Aminotransferase 13 U/L (13-56); Albumin 3.4 G/DL (3.4-5.0); Alkaline Phosphatase 66 U/L (45-117); Aspartate Amino Transferase 11 U/L (0-37); Bilirubin,Total < 0.39 MG/DL (0.2-1.0); Blood Urea Nitrogen 116 MG/DL (7-18); Calcium 8.9 MG/DL (8.5-10.1); Estimated Glom Filtration Rate 10 ML/MIN; Glucose 93 MG/DL (74-106); Osmolality,Calculated 293.1 MOS/KG (273-304); Total Protein 7.3 G/DL (6.4-8.3)
[2019-05-17 14:04] LABS: Amorphous Crystals,Urine Moderate /HPF (Few); Bacteria,Urine Occasional /HPF (Few); Mucus,Urine Occasional /LPF (Occasional); RBC,Urine 4 /HPF (0-4); WBC,Urine 3 /HPF (0-6)
[2019-05-17 14:08] LABS: Urine Color Yellow (Yellow)
[2019-05-17 14:09] LABS: Apearance,Urine Slightly Hazy (Clear); Bilirubin,Urine Negative (Negative); Blood, Urine Negative (Negative); Glucose,Urine (UA) Negative (Negative); Ketones,Urine Negative (Negative); Nitrite,Urine Negative (Negative); Protein,Urine 30 MG/DL; Urine Specific Gravity 1.011 (1.001-1.035)
[2019-05-17 14:10] LABS: Urine Urobilinogen 0.2 EU/DL (0.2-1.0)
[2019-05-17] MEDS ORDERED: SODIUM CHLORIDE 0.9% 1,000 ML IV PRN ×2 (16:13→18:42)
[2019-05-17] MEDS: methylPREDNISolone SOD SUC 40 MG/1 ML VIAL IV SCH (18:31)
[2019-05-17] MEDS: ENOXAPARIN 30 MG/0.3 ML SYRINGE SUBCUT SCH (20:38)
[2019-05-17 22:49] LABS: % Iron Saturation 26.3 % (18-50); Ferritin 261.9 ng/ml (8-252)
[2019-05-17 22:59] LABS: Folate 10.5 NG/ML (5.4-24.0)
[2019-05-18] MEDS: ONDANSETRON 4 MG/2 ML VIAL IV PRN ×2 (00:02→23:59)
[2019-05-18 05:17] LABS: Hematocrit 25.9 VOL% (35.7-47.0); Hemoglobin 8.3 GM/DL (12.0-16.0); Immature Granulocytes % 1.6 %; Immature Granulocytes Absolute 0.03 #; Lymphocytes # 0.1 10*3/uL (1.4-4.0); Lymphocytes % 6.6 % (21.3-54.2); Mean Corpuscular Volume 81.2 FL (87-102); Mean Platelet Volume 11.8 FL (9.6-12.0); Monocytes % 3.3 % (1.7-12.7); Neutrophils % 88.5 % (38.7-73.9); Platelet Count 183 T/CUMM (130-400); Red Blood Count 3.19 MC/CUMM (3.8-5.5); Red Cell Distribution Width 16.6 % (9.3-17.3); White Blood Count 1.8 T/CUMM (4-12)
[2019-05-18] MEDS: methylPREDNISolone SOD SUC 40 MG/1 ML VIAL IV SCH ×2 (05:20→16:38)
[2019-05-18] MEDS: SIMETHICONE CHEW 125 MG TABLET PO PRN ×2 (05:20→23:34)
[2019-05-18 05:28] LABS: Albumin 2.9 G/DL (3.4-5.0); Bilirubin,Total 0.7 MG/DL (0.2-1.0); Calcium 8.8 MG/DL (8.5-10.1); Osmolality,Calculated 305.5 MOS/KG (273-304); Total Protein 7.1 G/DL (6.4-8.3)
[2019-05-18 05:39] LABS: Band Neutrophils 2 % (0-10); Hypochromasia 1+; Lymphocytes 3 % (20-55); Microcytosis 1+; Ovalocytes Few; Segmented Neutrophils 93 % (50-85); Total Cells Counted 100
[2019-05-18 05:40] LABS: Platelet Estimate Adequate
[2019-05-18] MEDS: PANTOPRAZOLE 40 MG TABLET PO SCH (09:31)
[2019-05-18] MEDS ORDERED: MYCOPHENOLATE MOFETIL 250 MG CAPSULE PO SCH (10:00)
[2019-05-18] MEDS: FLUCONAZOLE 200 MG TABLET PO SCH (10:19)
[2019-05-18] MEDS: HYDROXYCHLOROQUINE 200 MG TABLET PO SCH ×2 (10:20→23:28)
[2019-05-18] MEDS: hydrALAZINE 25 MG TABLET PO SCH ×2 (10:22→23:27)
[2019-05-18] MEDS: carvediloL 12.5 MG TABLET PO SCH ×2 (10:23→23:27)
[2019-05-18] MEDS: NYSTATIN CREAM 15 GM TUBE TOP SCH ×2 (17:46→23:29)
[2019-05-18] MEDS: ENOXAPARIN 30 MG/0.3 ML SYRINGE SUBCUT SCH ×2 (23:28→23:39)
[2019-05-19 05:12] LABS: Hematocrit 24.7 VOL% (35.7-47.0); Hemoglobin 8.1 GM/DL (12.0-16.0); Immature Granulocytes % 0.5 %; Immature Granulocytes Absolute 0.01 #; Lymphocytes # 0.2 10*3/uL (1.4-4.0); Lymphocytes % 12.5 % (21.3-54.2); Mean Corpuscular HGB Conc 32.8 GM/DL (32-36); Mean Corpuscular Volume 79.2 FL (87-102); Mean Platelet Volume 11.5 FL (9.6-12.0); Platelet Count 210 T/CUMM (130-400); Red Blood Count 3.12 MC/CUMM (3.8-5.5); Red Cell Distribution Width 14.7 % (9.3-17.3); White Blood Count 1.8 T/CUMM (4-12)
[2019-05-19 05:32] LABS: Alanine Aminotransferase 14 U/L (13-56); Albumin 2.9 G/DL (3.4-5.0); Alkaline Phosphatase 59 U/L (45-117); Aspartate Amino Transferase 8 U/L (0-37); Bilirubin,Total < 0.39 MG/DL (0.2-1.0); Blood Urea Nitrogen 156 MG/DL (7-18); Calcium 9.1 MG/DL (8.5-10.1); Estimated Glom Filtration Rate 7 ML/MIN; Glucose 115 MG/DL (74-106); Osmolality,Calculated 317.4 MOS/KG (273-304)
[2019-05-19 05:34] LABS: Band Neutrophils 2 % (0-10); Lymphocytes 11 % (20-55); Segmented Neutrophils 76 % (50-85); Total Cells Counted 100
[2019-05-19 05:35] LABS: Atypical Lymphocytes Few; Hypochromasia 1+; Microcytosis 1+; Ovalocytes Few
[2019-05-19] MEDS: methylPREDNISolone SOD SUC 40 MG/1 ML VIAL IV SCH (06:03)
[2019-05-19] MEDS: carvediloL 12.5 MG TABLET PO SCH ×2 (08:34→21:09)
[2019-05-19] MEDS: FLUCONAZOLE 200 MG TABLET PO SCH (08:34)
[2019-05-19] MEDS: hydrALAZINE 25 MG TABLET PO SCH ×2 (08:34→21:09)
[2019-05-19] MEDS: PANTOPRAZOLE 40 MG TABLET PO SCH (08:34)
[2019-05-19] MEDS: HYDROXYCHLOROQUINE 200 MG TABLET PO SCH ×2 (08:34→21:09)
[2019-05-19] MEDS: NYSTATIN CREAM 15 GM TUBE TOP SCH ×2 (08:35→21:10)
[2019-05-19] MEDS ORDERED: DEXTROSE 5% NACL 0.45% 1,000 ML IV SCH (09:30)
[2019-05-19] MEDS: SODIUM BICARB INJ 50 MEQ in DEXTROSE 5% NACL 0.45% 1,000 ML IV SCH ×2 (13:15→21:15)
[2019-05-19] MEDS: ENOXAPARIN 30 MG/0.3 ML SYRINGE SUBCUT SCH (21:10)
[2019-05-20 04:37] LABS: Hematocrit 21.1 VOL% (35.7-47.0); Hemoglobin 7.2 GM/DL (12.0-16.0); Immature Granulocytes % 1.7 %; Immature Granulocytes Absolute 0.02 #; Lymphocytes # 0.4 10*3/uL (1.4-4.0); Lymphocytes % 29.8 % (21.3-54.2); Mean Corpuscular HGB Conc 34.1 GM/DL (32-36); Mean Corpuscular Volume 76.4 FL (87-102); Mean Platelet Volume 11.9 FL (9.6-12.0); Monocytes % 11.6 % (1.7-12.7); Neutrophils % 56.9 % (38.7-73.9); Platelet Count 174 T/CUMM (130-400); Red Blood Count 2.76 MC/CUMM (3.8-5.5); Red Cell Distribution Width 14.6 % (9.3-17.3); White Blood Count 1.2 T/CUMM (4-12)
[2019-05-20 05:06] LABS: Calcium 8.2 MG/DL (8.5-10.1); Osmolality,Calculated 314.7 MOS/KG (273-304)
[2019-05-20 05:09] LABS: Band Neutrophils 3 % (0-10); Hypochromasia 1+; Lymphocytes 22 % (20-55); Ovalocytes Slight; Platelet Estimate Adequate; Segmented Neutrophils 59 % (50-85); Total Cells Counted 100
[2019-05-20 05:10] LABS: Atypical Lymphocytes Few; Microcytosis 1+
[2019-05-20] MEDS: SODIUM BICARB INJ 50 MEQ in DEXTROSE 5% NACL 0.45% 1,000 ML IV SCH ×3 (05:56→21:14)
[2019-05-20 09:31] LABS: Hepatitis B Core IgM Quant 0.12 Index; Hepatitis B Surface Ag Quant < 0.10 Index; Hepatitis B Surface Ag Result Negative (Negative); Hepatitis C Virus Ab Quant < 0.02 Index; Hepatitis C Virus Ab Result Negative (Negative)
[2019-05-20] MEDS ORDERED: SODIUM CHLORIDE 0.9% 1,000 ML IV PRN (09:31)
[2019-05-20] MEDS ORDERED: ceFAZolin 1,000 MG in SYRINGE 1 EACH IV ONE (10:00)
[2019-05-20] MEDS ORDERED: BUPIVACAINE 0.25% /EPI 10 ML VIAL ONE (10:09)
[2019-05-20] MEDS ORDERED: HEPARIN 5,000 UNIT/1 ML VIAL ONE (10:09)
[2019-05-20] MEDS ORDERED: LIDOCAINE 1%/EPI INJ 20 ML VIAL ONE (10:10)
[2019-05-20] MEDS: carvediloL 12.5 MG TABLET PO SCH ×2 (10:12→21:06)
[2019-05-20] MEDS: PANTOPRAZOLE 40 MG TABLET PO SCH (10:12)
[2019-05-20] MEDS: hydrALAZINE 25 MG TABLET PO SCH ×2 (10:12→21:06)
[2019-05-20] MEDS: NYSTATIN CREAM 15 GM TUBE TOP SCH ×2 (10:20→21:11)
[2019-05-20] MEDS: HYDROXYCHLOROQUINE 200 MG TABLET PO SCH ×2 (10:48→21:06)
[2019-05-20] MEDS: FLUCONAZOLE 200 MG TABLET PO SCH (10:48)
[2019-05-20] MEDS ORDERED: HEPARIN 10,000 UNIT/10 ML VIAL IV SCH (12:30)
[2019-05-20] MEDS ORDERED: KETAMINE 500 MG/10 ML VIAL ONE (12:47)
[2019-05-20] MEDS ORDERED: propofoL 200 MG/20 ML VIAL IV ONE (12:47)
[2019-05-20] MEDS ORDERED: LIDOCAINE 2% 5 ML VIAL ONE (12:47)
[2019-05-20] MEDS ORDERED: MIDAZOLAM 2 MG/2 ML VIAL ONE (12:48)
[2019-05-20] MEDS ORDERED: fentaNYL 100 MCG/2 ML VIAL ONE (12:48)
[2019-05-20 14:19] LABS: Cyclic Citrull Peptide Interp Negative
[2019-05-20] MEDS: CHOLESTYRAMINE 4 GM PACK PO SCH (21:06)
[2019-05-20] MEDS: ENOXAPARIN 30 MG/0.3 ML SYRINGE SUBCUT SCH ×2 (21:06→21:17)
[2019-05-21] MEDS: SODIUM BICARB INJ 50 MEQ in DEXTROSE 5% NACL 0.45% 1,000 ML IV SCH ×3 (05:43→21:19)
[2019-05-21] MEDS: carvediloL 12.5 MG TABLET PO SCH ×2 (14:01→21:13)
[2019-05-21] MEDS: CHOLESTYRAMINE 4 GM PACK PO SCH ×2 (14:01→21:14)
[2019-05-21] MEDS: hydrALAZINE 25 MG TABLET PO SCH ×2 (14:01→21:13)
[2019-05-21] MEDS: NYSTATIN CREAM 15 GM TUBE TOP SCH ×2 (14:01→21:15)
[2019-05-21] MEDS: PANTOPRAZOLE 40 MG TABLET PO SCH (14:01)
[2019-05-21] MEDS: HYDROXYCHLOROQUINE 200 MG TABLET PO SCH ×2 (15:48→21:13)
[2019-05-21] MEDS: ENOXAPARIN 30 MG/0.3 ML SYRINGE SUBCUT SCH (21:13)
[2019-05-22] MEDS: SODIUM BICARB INJ 50 MEQ in DEXTROSE 5% NACL 0.45% 1,000 ML IV SCH (05:05)
[2019-05-22 05:34] LABS: Eosinophils % 0.9 % (0.00-10.9); Hematocrit 21.5 VOL% (35.7-47.0); Lymphocytes # 0.5 10*3/uL (1.4-4.0); Lymphocytes % 48.2 % (21.3-54.2); Mean Corpuscular HGB Conc 32.6 GM/DL (32-36); Mean Corpuscular Volume 82.1 FL (87-102); Mean Platelet Volume 11.7 FL (9.6-12.0); Monocytes % 10.9 % (1.7-12.7); Platelet Count 89 T/CUMM (130-400); Red Blood Count 2.62 MC/CUMM (3.8-5.5); Red Cell Distribution Width 14.5 % (9.3-17.3); White Blood Count 1.1 T/CUMM (4-12)
[2019-05-22 06:03] LABS: Lymphocytes 48 % (20-55); Segmented Neutrophils 42 % (50-85); Total Cells Counted 100
[2019-05-22 06:04] LABS: Anisocytosis 1+; Platelet Estimate Decreased
[2019-05-22 06:05] LABS: Calcium 6.6 MG/DL (8.5-10.1); Osmolality,Calculated 274.4 MOS/KG (273-304)
[2019-05-22] MEDS: carvediloL 12.5 MG TABLET PO SCH ×2 (08:00→20:48)
[2019-05-22] MEDS: FLUCONAZOLE 100 MG TABLET PO SCH (08:00)
[2019-05-22] MEDS: NYSTATIN CREAM 15 GM TUBE TOP SCH ×2 (08:00→21:01)
[2019-05-22] MEDS: hydrALAZINE 25 MG TABLET PO SCH ×2 (08:00→20:48)
[2019-05-22] MEDS: PANTOPRAZOLE 40 MG TABLET PO SCH (08:01)
[2019-05-22] MEDS: HYDROXYCHLOROQUINE 200 MG TABLET PO SCH ×3 (08:01→21:00)
[2019-05-22] MEDS: CHOLESTYRAMINE 4 GM PACK PO SCH (08:01)
[2019-05-22] MEDS: ACETAMINOPHEN 325 MG TABLET PO PRN ×2 (08:02→16:22)
[2019-05-22] MEDS: LOPERAMIDE 2 MG CAPSULE PO PRN ×2 (13:49→20:54)
[2019-05-22] MEDS: COLESTIPOL 1 GM TABLET PO SCH (20:47)
[2019-05-22] MEDS: ENOXAPARIN 30 MG/0.3 ML SYRINGE SUBCUT SCH (20:48)
[2019-05-23 05:09] LABS: Eosinophils % 1.1 % (0.00-10.9); Hematocrit 25.6 VOL% (35.7-47.0); Hemoglobin 8.2 GM/DL (12.0-16.0); Immature Granulocytes % 1.1 %; Immature Granulocytes Absolute 0.01 #; Lymphocytes # 0.4 10*3/uL (1.4-4.0); Lymphocytes % 45.3 % (21.3-54.2); Mean Corpuscular Volume 83.1 FL (87-102); Mean Platelet Volume 10.6 FL (9.6-12.0); Neutrophils % 32.5 % (38.7-73.9); Red Blood Count 3.08 MC/CUMM (3.8-5.5); Red Cell Distribution Width 14.5 % (9.3-17.3)
[2019-05-23 05:16] LABS: Platelet Count 97 T/CUMM (130-400)
[2019-05-23 05:41] LABS: Atypical Lymphocytes Few; Band Neutrophils 4 % (0-10); Eosinophils 1 % (0-10); Hypochromasia 1+; Lymphocytes 48 % (20-55); Microcytosis 1+; Polychromasia Slight; Segmented Neutrophils 30 % (50-85); Total Cells Counted 100
[2019-05-23 05:42] LABS: Platelet Estimate Decreased
[2019-05-23 05:53] LABS: Albumin 2.2 G/DL (3.4-5.0); Bilirubin,Total 0.6 MG/DL (0.2-1.0); Calcium 7.7 MG/DL (8.5-10.1); Osmolality,Calculated 265.5 MOS/KG (273-304); Total Protein 5.9 G/DL (6.4-8.3)
[2019-05-23] MEDS: HYDROXYCHLOROQUINE 200 MG TABLET PO SCH ×2 (09:38→21:54)
[2019-05-23] MEDS: PANTOPRAZOLE 40 MG TABLET PO SCH (09:38)
[2019-05-23] MEDS: hydrALAZINE 25 MG TABLET PO SCH ×2 (09:38→21:54)
[2019-05-23] MEDS: COLESTIPOL 1 GM TABLET PO SCH ×3 (09:38→21:54)
[2019-05-23] MEDS: carvediloL 12.5 MG TABLET PO SCH ×2 (09:38→21:54)
[2019-05-23] MEDS: NYSTATIN CREAM 15 GM TUBE TOP SCH ×2 (09:39→21:55)
[2019-05-23] MEDS: FLUCONAZOLE 100 MG TABLET PO SCH (09:39)
[2019-05-23 11:32] LABS: Total Protein 5.8 G/DL (6.4-8.3)
[2019-05-23] MEDS: ACETAMINOPHEN 325 MG TABLET PO PRN (21:54)
[2019-05-23] MEDS: ENOXAPARIN 30 MG/0.3 ML SYRINGE SUBCUT SCH (21:54)
[2019-05-24] MEDS: PANTOPRAZOLE 40 MG TABLET PO SCH (09:05)
[2019-05-24] MEDS: COLESTIPOL 1 GM TABLET PO SCH ×2 (09:05→22:37)
[2019-05-24] MEDS: FLUCONAZOLE 100 MG TABLET PO SCH (09:05)
[2019-05-24] MEDS: hydrALAZINE 25 MG TABLET PO SCH ×2 (09:05→20:50)
[2019-05-24] MEDS: HYDROXYCHLOROQUINE 200 MG TABLET PO SCH ×2 (09:05→20:45)
[2019-05-24] MEDS: carvediloL 12.5 MG TABLET PO SCH ×2 (09:05→20:45)
[2019-05-24] MEDS: NYSTATIN CREAM 15 GM TUBE TOP SCH ×2 (09:06→20:45)
[2019-05-24] MEDS ORDERED: MAGNESIUM SULF RIDER 1 GM in PREMIX 1 EACH IV ONE (14:50)
[2019-05-24] MEDS ORDERED: POTASSIUM CHLORIDE 20 MEQ TABLET PO ONE (14:50)
[2019-05-24] MEDS ORDERED: VANCOMYCIN INJ 1,000 MG in SODIUM CHLORIDE 0.9% 250 ML IV PRN (15:00)
[2019-05-24] MEDS ORDERED: VANCOMYCIN INJ 500 MG in SODIUM CHLORIDE 0.9% 100 ML IV PRN (15:30)
[2019-05-24] MEDS: CEFEPIME 1,000 MG in SODIUM CHLORIDE 0.9% 100 ML IV SCH (16:41)
[2019-05-24] MEDS ORDERED: VANCOMYCIN INJ 1,500 MG in SODIUM CHLORIDE 0.9% 500 ML IV ONE (17:00)
[2019-05-24] MEDS: ENOXAPARIN 30 MG/0.3 ML SYRINGE SUBCUT SCH (20:45)
[2019-05-25 05:27] LABS: Calcium 7.4 MG/DL (8.5-10.1); Osmolality,Calculated 265.1 MOS/KG (273-304)
[2019-05-25 07:23] LABS: Total Protein (Chem) 5.8 G/DL (6.4-8.3)
[2019-05-25 08:33] LABS: Albumin (SPE) 3.1 G/DL (3.2-5.3); Albumin (SPE) Rel % 52.8 %; Alpha 1 (SPE) 0.3 G/DL (0.1-0.4); Alpha 1 (SPE) Rel % 4.6 %; Alpha 2 (SPE) 0.8 G/DL (0.4-1.0); Alpha 2 (SPE) Rel % 14.5 %; Beta (SPE) 0.9 G/DL (0.5-1.1); Beta (SPE) Rel % 15.1 %; Gamma (SPE) 0.8 G/DL (0.7-1.7)
[2019-05-25] MEDS: PANTOPRAZOLE 40 MG TABLET PO SCH (09:07)
[2019-05-25] MEDS: COLESTIPOL 1 GM TABLET PO SCH ×2 (09:07→20:19)
[2019-05-25] MEDS: FLUCONAZOLE 100 MG TABLET PO SCH (09:07)
[2019-05-25] MEDS: HYDROXYCHLOROQUINE 200 MG TABLET PO SCH (09:08)
[2019-05-25] MEDS: NYSTATIN CREAM 15 GM TUBE TOP SCH ×2 (09:09→20:20)
[2019-05-25] MEDS: LOPERAMIDE 2 MG CAPSULE PO PRN (09:11)
[2019-05-25 09:17] LABS: Hemoglobin A1 (Alkaline) 96.9 % (96.5-98.5); Hemoglobin A2 (Alkaline) 3.1 % (1.5-3.5)
[2019-05-25 12:51] LABS: Basophils % 0.8 % (0.0-0.8); Hematocrit 26.2 VOL% (35.7-47.0); Hemoglobin 8.5 GM/DL (12.0-16.0); Lymphocytes # 0.4 10*3/uL (1.4-4.0); Lymphocytes % 31.7 % (21.3-54.2); Mean Corpuscular HGB Conc 32.4 GM/DL (32-36); Mean Corpuscular Volume 82.1 FL (87-102); Mean Platelet Volume 11.3 FL (9.6-12.0); Monocytes % 31.7 % (1.7-12.7); Neutrophils % 35.8 % (38.7-73.9); Platelet Count 160 T/CUMM (130-400); Red Blood Count 3.19 MC/CUMM (3.8-5.5); Red Cell Distribution Width 14.3 % (9.3-17.3); White Blood Count 1.2 T/CUMM (4-12)
[2019-05-25 13:23] LABS: Anisocytosis 1+; Band Neutrophils 15 % (0-10); Lymphocytes 32 % (20-55); Platelet Estimate Normal; Segmented Neutrophils 31 % (50-85); Smudge Cells Few; Total Cells Counted 100
[2019-05-25 13:24] LABS: Poikilocytosis Slight
[2019-05-25] MEDS: hydrALAZINE 25 MG TABLET PO SCH ×2 (15:51→20:19)
[2019-05-25] MEDS: carvediloL 12.5 MG TABLET PO SCH ×2 (15:51→20:19)
[2019-05-25] MEDS: methylPREDNISolone SOD SUC 40 MG/1 ML VIAL IV SCH (15:54)
[2019-05-25] MEDS ORDERED: VANCOMYCIN INJ 500 MG in SODIUM CHLORIDE 0.9% 100 ML IV ONE (17:00)
[2019-05-25] MEDS: CEFEPIME 1,000 MG in SODIUM CHLORIDE 0.9% 100 ML IV SCH (17:28)
[2019-05-25] MEDS: ENOXAPARIN 30 MG/0.3 ML SYRINGE SUBCUT SCH (20:20)
[2019-05-26] MEDS: methylPREDNISolone SOD SUC 40 MG/1 ML VIAL IV SCH ×2 (01:45→15:01)
[2019-05-26 05:01] LABS: Basophils % 0.7 % (0.0-0.8); Hemoglobin 7.4 GM/DL (12.0-16.0); Immature Granulocytes % 1.4 %; Immature Granulocytes Absolute 0.02 #; Lymphocytes # 0.4 10*3/uL (1.4-4.0); Lymphocytes % 27.3 % (21.3-54.2); Mean Corpuscular HGB Conc 33.6 GM/DL (32-36); Mean Corpuscular Volume 81.8 FL (87-102); Mean Platelet Volume 12.1 FL (9.6-12.0); Monocytes % 15.8 % (1.7-12.7); Neutrophils % 54.8 % (38.7-73.9); Platelet Count 159 T/CUMM (130-400); Red Blood Count 2.69 MC/CUMM (3.8-5.5); Red Cell Distribution Width 14.3 % (9.3-17.3); White Blood Count 1.4 T/CUMM (4-12)
[2019-05-26 05:19] LABS: Calcium 7.7 MG/DL (8.5-10.1); Osmolality,Calculated 266.7 MOS/KG (273-304)
[2019-05-26 05:26] LABS: Band Neutrophils 3 % (0-10); Hypochromasia 1+; Lymphocytes 34 % (20-55); Microcytosis 1+; Segmented Neutrophils 53 % (50-85); Total Cells Counted 100
[2019-05-26 05:27] LABS: Ovalocytes Slight; Platelet Estimate Adequate
[2019-05-26] MEDS: carvediloL 12.5 MG TABLET PO SCH ×2 (08:31→20:32)
[2019-05-26] MEDS: hydrALAZINE 25 MG TABLET PO SCH ×2 (08:31→20:32)
[2019-05-26] MEDS: FLUCONAZOLE 100 MG TABLET PO SCH (08:31)
[2019-05-26] MEDS: COLESTIPOL 1 GM TABLET PO SCH ×2 (08:31→20:32)
[2019-05-26] MEDS: PANTOPRAZOLE 40 MG TABLET PO SCH (08:32)
[2019-05-26] MEDS: NYSTATIN CREAM 15 GM TUBE TOP SCH ×2 (08:39→20:49)
[2019-05-26 09:16] LABS: Immuno Free Light Chain Kappa 8.44 MG/DL (0.33-1.94); Immuno Free Light Chain Ratio 0.84 MG/DL (0.26-1.65)
[2019-05-26] MEDS: CEFEPIME 1,000 MG in SODIUM CHLORIDE 0.9% 100 ML IV SCH (16:33)
[2019-05-26] MEDS: ENOXAPARIN 30 MG/0.3 ML SYRINGE SUBCUT SCH (20:32)
[2019-05-27] MEDS: methylPREDNISolone SOD SUC 40 MG/1 ML VIAL IV SCH ×2 (02:44→18:09)
[2019-05-27 05:18] LABS: Basophils % 0.4 % (0.0-0.8); Hematocrit 22.2 VOL% (35.7-47.0); Hemoglobin 7.2 GM/DL (12.0-16.0); Immature Granulocytes % 1.6 %; Immature Granulocytes Absolute 0.04 #; Lymphocytes # 0.7 10*3/uL (1.4-4.0); Mean Corpuscular HGB Conc 32.4 GM/DL (32-36); Mean Corpuscular Volume 81.6 FL (87-102); Mean Platelet Volume 11.6 FL (9.6-12.0); Monocytes % 19.4 % (1.7-12.7); Neutrophils % 49.6 % (38.7-73.9); Platelet Count 252 T/CUMM (130-400); Red Blood Count 2.72 MC/CUMM (3.8-5.5); Red Cell Distribution Width 14.6 % (9.3-17.3); White Blood Count 2.5 T/CUMM (4-12)
[2019-05-27 05:39] LABS: Calcium 8.8 MG/DL (8.5-10.1); Osmolality,Calculated 269.8 MOS/KG (273-304)
[2019-05-27 07:08] LABS: Band Neutrophils 3 % (0-10); Hypochromasia 2+; Lymphocytes 32 % (20-55); Microcytosis 1+; Ovalocytes Slight; Platelet Estimate Adequate; Segmented Neutrophils 49 % (50-85); Total Cells Counted 100
[2019-05-27] MEDS: PANTOPRAZOLE 40 MG TABLET PO SCH (08:45)
[2019-05-27] MEDS: COLESTIPOL 1 GM TABLET PO SCH ×2 (08:45→20:34)
[2019-05-27] MEDS: NYSTATIN CREAM 15 GM TUBE TOP SCH ×2 (08:45→20:36)
[2019-05-27] MEDS: hydrALAZINE 25 MG TABLET PO SCH ×2 (17:18→20:34)
[2019-05-27] MEDS: carvediloL 12.5 MG TABLET PO SCH ×2 (17:27→20:34)
[2019-05-27] MEDS: CEFEPIME 1,000 MG in SODIUM CHLORIDE 0.9% 100 ML IV SCH (18:08)
[2019-05-27] MEDS: FLUCONAZOLE 100 MG TABLET PO SCH (18:10)
[2019-05-27] MEDS: ENOXAPARIN 30 MG/0.3 ML SYRINGE SUBCUT SCH (20:35)
[2019-05-28] MEDS: methylPREDNISolone SOD SUC 40 MG/1 ML VIAL IV SCH (03:19)
[2019-05-28 06:02] LABS: Basophils % 0.3 % (0.0-0.8); Hematocrit 22.8 VOL% (35.7-47.0); Hemoglobin 7.4 GM/DL (12.0-16.0); Immature Granulocytes % 7.1 %; Immature Granulocytes Absolute 0.25 #; Lymphocytes # 0.9 10*3/uL (1.4-4.0); Lymphocytes % 24.6 % (21.3-54.2); Mean Corpuscular HGB Conc 32.5 GM/DL (32-36); Mean Platelet Volume 11.3 FL (9.6-12.0); Monocytes % 18.7 % (1.7-12.7); Neutrophils % 49.3 % (38.7-73.9); Platelet Count 310 T/CUMM (130-400); Red Blood Count 2.78 MC/CUMM (3.8-5.5); Red Cell Distribution Width 14.6 % (9.3-17.3); White Blood Count 3.5 T/CUMM (4-12)
[2019-05-28 06:25] LABS: Band Neutrophils 4 % (0-10); Hypochromasia 2+; Lymphocytes 20 % (20-55); Microcytosis 1+; Myelocytes 2 %; Ovalocytes Slight; Platelet Estimate Adequate; Segmented Neutrophils 53 % (50-85); Total Cells Counted 100
[2019-05-28] MEDS: COLESTIPOL 1 GM TABLET PO SCH (09:34)
[2019-05-28] MEDS: carvediloL 12.5 MG TABLET PO SCH (09:34)
[2019-05-28] MEDS: PANTOPRAZOLE 40 MG TABLET PO SCH (09:34)
[2019-05-28] MEDS: hydrALAZINE 25 MG TABLET PO SCH (09:34)
[2019-05-28] MEDS: FLUCONAZOLE 100 MG TABLET PO SCH (09:34)
[2019-05-28] MEDS: NYSTATIN CREAM 15 GM TUBE TOP SCH (09:35)
[2019-05-28 12:43] VITALS: BP 102/66
== END 2019-05-28 14:45 | disposition home health service (06) | DRG 674 ==
LOC: EDUNIT# → EDBD → N.EDINP 11:42 → N.ED 11:42 → SUATTDRO 14:15 → N.5E 14:45 → SUATTDRO 05-19 13:13
PROVIDERS: ADMIT Internal Medicine; ATTEND Internal Medicine

== ENCOUNTER 2019-08-17 06:46 | Inpatient (IN) ==
[2019-08-17] MEDS ORDERED: TISSUE ADHESIVE 1 EACH APPLICATOR TOP ONE (06:48)
[2019-08-17] MEDS ORDERED: BUPIVACAINE MPF 0.25% 30 ML VIAL ONE (06:49)
[2019-08-17] MEDS ORDERED: HEPARIN 5,000 UNIT/1 ML VIAL ONE (06:49)
[2019-08-17] MEDS ORDERED: LIDOCAINE 1%/EPI INJ 20 ML VIAL ONE (06:49)
[2019-08-17 07:24] LABS: Basophils % 0.5 % (0.0-0.8); Eosinophils % 0.1 % (0.00-10.9); Hematocrit 41.3 VOL% (35.7-47.0); Hemoglobin 12.7 GM/DL (12.0-16.0); Immature Granulocytes % 0.5 %; Immature Granulocytes Absolute 0.04 #; Lymphocytes # 2.8 10*3/uL (1.4-4.0); Lymphocytes % 33.1 % (21.3-54.2); Mean Corpuscular HGB Conc 30.8 GM/DL (32-36); Mean Corpuscular Volume 95.2 FL (87-102); Mean Platelet Volume 11.3 FL (9.6-12.0); Monocytes % 3.7 % (1.7-12.7); Neutrophils % 62.1 % (38.7-73.9); Platelet Count 301 T/CUMM (130-400); Red Blood Count 4.34 MC/CUMM (3.8-5.5); Red Cell Distribution Width 17.8 % (9.3-17.3); White Blood Count 8.3 T/CUMM (4-12)
[2019-08-17 07:34] LABS: Anisocytosis 1+; Hypochromasia 1+; Microcytosis 1+
[2019-08-17 07:35] LABS: Platelet Estimate Normal
[2019-08-17] MEDS: SODIUM CHLORIDE 0.9% 250 ML IV SCH (07:35)
[2019-08-17 07:43] LABS: Osmolality,Calculated 281.4 MOS/KG (273-304)
[2019-08-17] MEDS ORDERED: VANCOMYCIN 1,000 MG VIAL ONE (08:08)
[2019-08-17] MEDS ORDERED: propofoL 200 MG/20 ML VIAL IV ONE (08:30)
[2019-08-17] MEDS ORDERED: fentaNYL 100 MCG/2 ML VIAL ONE (08:30)
[2019-08-17] MEDS ORDERED: ONDANSETRON 4 MG/2 ML VIAL ONE (08:30)
[2019-08-17] MEDS ORDERED: LIDOCAINE 2% 5 ML VIAL ONE (08:30)
[2019-08-17] MEDS ORDERED: SODIUM CHLORIDE 0.9% 100 ML IV ONE (08:31)
[2019-08-17] MEDS ORDERED: DEXTROSE 10% 250 ML BAG IV PRN (08:58)
[2019-08-17] MEDS ORDERED: GLUCAGON 1 MG VIAL IM PRN (08:58)
[2019-08-17] MEDS ORDERED: valACYclovir 500 MG TABLET PO ONE (09:31)
[2019-08-17] MEDS ORDERED: cefTRIAXone 1,000 MG VIAL ONE (11:36)
[2019-08-17] MEDS: cefTRIAXone 1,000 MG in SYRINGE 1 EACH IV SCH (11:37)
[2019-08-17] MEDS: MUPIROCIN 2% OINT 22 GM TUBE TOP SCH ×2 (14:39→21:10)
[2019-08-17] MEDS ORDERED: MUPIROCIN 2% OINT 22 GM TUBE TOP ONE (14:40)
[2019-08-17] MEDS ORDERED: VANCOMYCIN INJ 500 MG in SODIUM CHLORIDE 0.9% 100 ML IV ONE (16:30)
[2019-08-17] MEDS ORDERED: MORPHINE 4 MG/1 ML VIAL IV PRN (17:55)
[2019-08-17] MEDS: carvediloL 12.5 MG TABLET PO SCH (18:02)
[2019-08-17] MEDS: HYDROXYCHLOROQUINE 200 MG TABLET PO SCH (18:28)
[2019-08-17] MEDS: predniSONE 20 MG TABLET PO SCH (18:28)
[2019-08-17] MEDS: hydrALAZINE 25 MG TABLET PO SCH (21:10)
[2019-08-18 05:46] LABS: Basophils % 0.1 % (0.0-0.8); Hematocrit 39.4 VOL% (35.7-47.0); Hemoglobin 12.4 GM/DL (12.0-16.0); Immature Granulocytes % 0.3 %; Immature Granulocytes Absolute 0.02 #; Lymphocytes # 1.6 10*3/uL (1.4-4.0); Lymphocytes % 23.6 % (21.3-54.2); Mean Corpuscular HGB Conc 31.5 GM/DL (32-36); Mean Platelet Volume 10.8 FL (9.6-12.0); Monocytes % 1.5 % (1.7-12.7); Neutrophils % 74.5 % (38.7-73.9); Platelet Count 268 T/CUMM (130-400); Red Blood Count 4.19 MC/CUMM (3.8-5.5); Red Cell Distribution Width 17.6 % (9.3-17.3); White Blood Count 6.9 T/CUMM (4-12)
[2019-08-18 05:59] LABS: Calcium 8.3 MG/DL (8.5-10.1); Osmolality,Calculated 281.7 MOS/KG (273-304)
[2019-08-18 07:06] LABS: Band Neutrophils 1 % (0-10); Lymphocytes 27 % (20-55); Segmented Neutrophils 68 % (50-85); Total Cells Counted 100
[2019-08-18 07:07] LABS: Anisocytosis 1+; Hypochromasia 1+; Microcytosis 1+
[2019-08-18 07:08] LABS: Ovalocytes Slight; Platelet Estimate Normal; Tear Drop Cells Slight
[2019-08-18] MEDS: HYDROXYCHLOROQUINE 200 MG TABLET PO SCH ×2 (09:36→17:15)
[2019-08-18] MEDS: carvediloL 12.5 MG TABLET PO SCH ×2 (09:36→17:15)
[2019-08-18] MEDS: hydrALAZINE 25 MG TABLET PO SCH ×2 (09:36→22:25)
[2019-08-18] MEDS: predniSONE 20 MG TABLET PO SCH ×2 (09:36→17:15)
[2019-08-18] MEDS: MUPIROCIN 2% OINT 22 GM TUBE TOP SCH ×2 (09:46→22:25)
[2019-08-18] MEDS: cefTRIAXone 1,000 MG in SYRINGE 1 EACH IV SCH (10:06)
[2019-08-18] MEDS ORDERED: HEPARIN 10,000 UNIT/10 ML VIAL IV SCH (16:45)
[2019-08-18] MEDS ORDERED: VANCOMYCIN INJ 500 MG in SODIUM CHLORIDE 0.9% 100 ML IV ONE (17:00)
[2019-08-18] MEDS ORDERED: VANCOMYCIN INJ 500 MG in SODIUM CHLORIDE 0.9% 100 ML IV PRN (17:00)
[2019-08-18] MEDS ORDERED: valACYclovir 500 MG TABLET PO SCH (17:00)
[2019-08-19] MEDS: SODIUM CHLORIDE 0.9% 250 ML IV SCH ×2 (04:10→11:01)
[2019-08-19 05:31] LABS: Basophils % 0.4 % (0.0-0.8); Hemoglobin 11.4 GM/DL (12.0-16.0); Immature Granulocytes % 0.4 %; Immature Granulocytes Absolute 0.03 #; Lymphocytes # 1.8 10*3/uL (1.4-4.0); Lymphocytes % 23.3 % (21.3-54.2); Mean Corpuscular HGB Conc 30.8 GM/DL (32-36); Mean Corpuscular Volume 95.4 FL (87-102); Monocytes % 3.2 % (1.7-12.7); Neutrophils % 72.7 % (38.7-73.9); Platelet Count 235 T/CUMM (130-400); Red Blood Count 3.88 MC/CUMM (3.8-5.5); Red Cell Distribution Width 17.4 % (9.3-17.3); White Blood Count 7.6 T/CUMM (4-12)
[2019-08-19 05:53] LABS: Calcium 8.4 MG/DL (8.5-10.1); Osmolality,Calculated 280.1 MOS/KG (273-304)
[2019-08-19] MEDS: HYDROXYCHLOROQUINE 200 MG TABLET PO SCH (08:45)
[2019-08-19] MEDS: MUPIROCIN 2% OINT 22 GM TUBE TOP SCH (08:45)
[2019-08-19] MEDS: hydrALAZINE 25 MG TABLET PO SCH (08:45)
[2019-08-19] MEDS: predniSONE 20 MG TABLET PO SCH (08:45)
[2019-08-19] MEDS: carvediloL 12.5 MG TABLET PO SCH (08:45)
[2019-08-19] MEDS: cefTRIAXone 1,000 MG in SYRINGE 1 EACH IV SCH (10:31)
[2019-08-19 11:44] VITALS: BP 137/86
== END 2019-08-19 13:18 | disposition home or self-care (01) | DRG 73 ==
LOC: N.OR 06:46 → N.SDSINP 06:48 → SUATTDRO 08:58 → N.3E 15:33
PROVIDERS: ADMIT Internal Medicine; ATTEND Internal Medicine